=== PATIENT | male | born 1965 | race Caucasian/White ===

== ENCOUNTER 2016-10-08 19:35 | Emergency (ER) | payer BC, MEDICAID ==
[~2016-10-08] VITALS: Ht 177.8 cm; Wt 77.1 kg
[~2016-10-08 19:35] MED LIST: AMBIEN5 MG ORAL; COLACE100 MG ORAL; NORCO 10/3251 EA ORAL; TORADOL10 MG GT; VENLAFAXINE HCL75 MG ORAL
[2016-10-08] MEDS ORDERED: Ketorolac 30mg Inj IV ONE (20:00)
[2016-10-08 20:09] VITALS: BP 103/64
[2016-10-08 20:31] LABS: BASOPHILS % (AUTO) 3.6 % (0.0-2.0); EOSINOPHILS % (AUTO) 1.3 % (0.0-3.0); LYMPHOCYTES % (AUTO) 24.1 % (20.0-45.0); MEAN CORPUSCULAR HEMOGLOBIN 29.3 PG (27.0-31.0); MEAN CORPUSCULAR VOLUME 84 FL (80-99); MEAN PLATELET VOLUME 6.6 FL (6.5-10.1); MONOCYTES % (AUTO) 14.7 % (1.0-10.0); NEUTROPHILS % (AUTO) 56.3 % (45.0-75.0); PLATELET COUNT 295 K/UL (150-450); RED BLOOD COUNT 5.19 M/UL (4.70-6.10); RED CELL DISTRIBUTION WIDTH 13.1 % (11.6-14.8); WHITE BLOOD COUNT 6.9 K/UL (4.8-10.8)
[2016-10-08 20:38] LABS: APPEARANCE,URINE CLEAR; KETONES,URINE NEGATIVE (NEGATIVE); LEUKOCYTE ESTERASE ,URINE NEGATIVE (NEGATIVE); NITRITE,URINE NEGATIVE (NEGATIVE); PH,URINE 5 (4.5-8.0); PROTEIN,URINE 2+ (NEGATIVE); UROBILINOGEN,URINE NORMAL MG/DL (0.0-1.0)
[2016-10-08 20:54] LABS: ALBUMIN/GLOBULIN RATIO 0.9 (1.0-2.7); CALCIUM 9.2 mg/dL (8.6-10.2); CREATININE 2.5 mg/dL (0.7-1.2); GLOMERULAR FILTRATION RATE 27.2 mL/min (>60); POTASSIUM 3.3 mEQ/L (3.4-4.9); TOTAL PROTEIN 7.6 g/dL (6.6-8.7)
[2016-10-08 20:55] LABS: BACTERIA,URINE FEW /HPF; WBC,URINE 0-2 /HPF (0 - 0)
[2016-10-08 21:49] VITALS: BP 100/59
[2016-10-08] MEDS ORDERED: LOMOTIL TABLET1 EACH ORAL (22:47)
[2016-10-08] MEDS ORDERED: NYSTATIN100000 UN1 ORAL (22:47)
[2016-10-08] MEDS ORDERED: METRONIDAZOLE500 MG ORAL (22:47)
[2016-10-08] MEDS ORDERED: CIPROFLOXACIN500 M2 ORAL (22:47)
--- NOTE | 2016-10-08 22:47 | Emergency Room Report ---
History of Present Illness General Chief Complaint: Diarrhea Source: Patient Present Illness HPI This is a 50-year-old male with newly diagnosed HIV. He just started HIV medication about 3 weeks ago. He presents with chief complaint protracted diarrhea for the last 6 days. Multiple episode day. Cramping pain. Diarrhea is watery. No fever chills but no nausea no vomiting. Ryegate weak. No other complaint. Allergies: Coded Allergies: No Known Allergies (Unverified , 09/09/13) Patient History Past Medical History: see triage record, old chart reviewed, HIV Past Surgical History: other Pertinent Family History: none Social History: Denies: smoking Immunizations: other Reviewed Nursing Documentation: PMH: Agreed, PSxH: Agreed Nursing Documentation-PMH Hx Cardiac Problems: No Hx Cancer: No Hx Gastrointestinal Problems: Yes - condylomata Hx Neurological Problems: No Review of Systems Eye: Denies: blurred vision, eye pain ENT: Denies: ear pain, nose congestion, throat swelling Respiratory: Denies: cough, shortness of breath Cardiovascular: Denies: chest pain, palpitations Gastrointestinal: Reports: diarrhea, Denies: abdominal pain, nausea, vomiting Musculoskeletal: Denies: back pain, joint pain Skin: Denies: rash Neurological: Denies: headache, numbness Endocrine: Denies: increased thirst, increased urine Hematologic/Lymphatic: Denies: easy bruising All Other Systems: negative except mentioned in HPI Physical Exam Vital Signs Date Time Temp Pulse Resp B/P Pulse Ox O2 Delivery O2 Flow Rate FiO2 10/08/16 19:42 98.8 119 18 83/54 100 Room Air vitals with hypotension and tachycardia Sp02 EP Interpretation: reviewed, normal General Appearance: well appearing, no apparent distress, alert Head: normocephalic, atraumatic Eyes: bilateral eye EOMI, bilateral eye PERRL ENT: hearing grossly normal, normal pharynx, other - Thrush Neck: full range of motion, supple, no meningismus Respiratory: chest non-tender, lungs clear, normal breath sounds Cardiovascular #1: regular rate, rhythm, no murmur Gastrointestinal: normal bowel sounds, non tender, no mass, no organomegaly, no bruit, non-distended Musculoskeletal: back normal, gait/station normal, normal range of motion Psychiatric: mood/affect normal Skin: warm/dry Medical Decision Making Diagnostic Impression: Primary Impression: Diarrhea Qualified Codes: A09 - Infectious gastroenteritis and colitis, unspecified Additional Impressions: PEPITO (acute kidney injury) Dehydration Thrush, oral Hyponatremia ER Course Patient with protracted diarrhea. He is dehydrated from this. Also with evidence of kidney injury with acute renal failure. He had IV fluid given here. He felt better. Blood pressure better. Heart rate back to normal. Diarrhea slowed down while he's been here. Will discharge home with antibiotics. Will give him copy of his labs to followup with his doctor. Lab Results Impression labs with renal injury. Last Vital Signs Date Time Temp Pulse Resp B/P Pulse Ox O2 Delivery O2 Flow Rate FiO2 10/08/16 21:49 98.8 95 25 100/59 100 Room Air Status: improved Disposition: HOME, SELF-CARE Condition: Stable Scripts Diphenoxylate Hcl/Atropine (LOMOTIL TABLET) 1 Each Tablet 1 TAB ORAL BID, #14 TAB 0 Refills Prov: MICHELLE RAGLAND M.D. 10/08/16 Metronidazole* (FLAGYL*) 500 Mg Tablet 500 MG ORAL BID, #14 TAB Prov: MICHELLE RAGLAND M.D. 10/08/16 Ciprofloxacin Hcl* (CIPROFLOXACIN HCL*) 500 Mg Tablet 500 MG ORAL Q12H, #14 TAB 0 Refills Prov: MICHELLE RAGLAND M.D. 10/08/16 Nystatin* (NYSTATIN*) 100,000 Unit/1 Ml Oral.susp 5 ML ORAL FOUR TIMES A DAY for 7 Days, ML Swish in the mouth and retain for as long as possible (several minutes) before swallowing Prov: MICHELLE RAGLAND M.D. 10/08/16 Referrals: NON PHYSICIAN (PCP) Patient Instructions: Diarrhea, Adult Additional Instructions: Followup with your DrRupali in 2-3 days. Return if symptom worsen. MICHELLE RAGLAND M.D. October 08, 2016 22:47
[2016-10-08 22:55] VITALS: BP 107/61
[2016-10-08 22:56] VITALS: BP 100/59
== END 2016-10-08 22:56 | disposition home or self-care (01) ==
LOC: EMR 20:00
DX: A09 Infectious gastroenteritis and colitis, unspecified (principal); N17.9 Acute kidney failure, unspecified; E86.0 Dehydration; B37.0 Candidal stomatitis; E87.1 Hypo-osmolality and hyponatremia
CPT/HCPCS: 36415; 80053; 81003; 83690; 85025; 96360; 96361; 96374; 99284; J1885